=== PATIENT | female | born 1950 | race Caucasian/White ===

== ENCOUNTER 2023-04-19 23:28 | Inpatient (IN) | payer MEDICARE, OTHER ==
[~2023-04-19] VITALS: Ht 167.6 cm; Wt 88.5 kg
[2023-04-19] MEDS ORDERED: MORPHINE 2 MG/ML 1ML VIAL IV ONE (23:50)
[2023-04-20] VITALS (8 sets, daily range): BP systolic 152–187; BP diastolic 70–85; TEMP 97.6–98.1; O2SAT 96–99
[2023-04-20 00:03] LABS: BASO # 0.1 10^3/uL (0.0-0.2); BASO % 0.6 % (0.0-1.0); EOS # 0.2 10^3/uL (0.0-0.5); EOS % 1.6 % (0.0-3.0); HEMATOCRIT 39.1 % (36.0-47.0); HEMOGLOBIN 13.1 g/dl (12.0-15.5); LYMPH # 1.4 10^3/uL (1.5-5.0); LYMPH % 10.8 % (24.0-44.0); MEAN CORPUSCULAR HEMOGLOBIN 30.6 pg (27.0-33.0); MEAN CORPUSCULAR HGB CONC 33.5 g/dl (32.0-36.5); MEAN CORPUSCULAR VOLUME 91.4 fl (80.0-96.0); MONO # 0.9 10^3/uL (0.0-0.8); MONO % 7.2 % (2.0-8.0); NEUTROPHILS # 10.1 10^3/uL (1.5-8.5); NEUTROPHILS % 79.3 % (36.0-66.0); PLATELET COUNT, AUTOMATED 283 10^3/uL (150-450); RED BLOOD COUNT 4.28 10^6/uL (4.00-5.40); WHITE BLOOD COUNT 12.7 10^3/uL (4.0-10.0)
[2023-04-20 00:27] LABS: LIPASE 27 U/L (12-53)
[2023-04-20 00:30] LABS: ALKALINE PHOSPHATASE 101 U/L (46-116); ALT/SGPT < 9 U/L (7.0-40); AST/SGOT < 8 U/L (<34); BILIRUBIN,DIRECT 0.1 MG/DL (<0.4); BILIRUBIN,TOTAL 0.4 MG/DL (0.3-1.2); BLOOD UREA NITROGEN 29 MG/DL (9-23); CALCIUM LEVEL 9.7 MG/DL (8.3-10.6); CARBON DIOXIDE LEVEL 26 MMOL/L (20-31); CHLORIDE LEVEL 107 MMOL/L (98-107); CREATININE FOR GFR 0.96 MG/DL (0.55-1.30); GLOMERULAR FILTRATION RATE > 60.0 (>39); GLUCOSE, FASTING 131 MG/DL (74-106); POTASSIUM SERUM 4.4 MMOL/L (3.5-5.1); SODIUM LEVEL 139 MMOL/L (136-145); TOTAL PROTEIN 6.2 G/DL (5.7-8.2)
[2023-04-20] MEDS ORDERED: MED REC IN PROGRESS XX SCH (00:40)
[2023-04-20] MEDS ORDERED: HYDROMORPHONE HCL 0.5 MG/ 0.5 ML SYRINGE IV PRN (00:45)
[2023-04-20 01:12] LABS: RSV AMPLIFICATION NEGATIVE (NEGATIVE)
[2023-04-20] MEDS ORDERED: MORPHINE 2 MG/ML 1ML VIAL IV PRN (01:55)
[2023-04-20] MEDS ORDERED: BISACODYL 5MG TAB PO PRN (01:55)
[2023-04-20] MEDS ORDERED: ACETAMINOPHEN TAB 650MG DOSE (2X325MG) PO PRN (01:55)
[2023-04-20] MEDS ORDERED: LR 1,000 ML IV SCH ×2 (01:55→17:40)
[2023-04-20] MEDS ORDERED: LIDOCAINE 5% (LIDODERM) PATCH TD PRN (01:55)
[2023-04-20] MEDS ORDERED: ONDANSETRON 4MG 2ML VIAL IV PRN ×2 (01:55→17:40)
[2023-04-20] MEDS ORDERED: hydrALAZINE 20MG/ML 1ML VIAL IV PRN ×2 (01:55→12:05)
[2023-04-20] MEDS ORDERED: B-12100011 SL (02:04)
[2023-04-20] MEDS ORDERED: MELO15TA28 PO (02:04)
[2023-04-20] MEDS ORDERED: HYDR-4571 PO (02:04)
[2023-04-20] MEDS ORDERED: CYCL10TA20 PO (02:04)
[2023-04-20] MEDS ORDERED: FURO20TA2 PO (02:04)
[2023-04-20] MEDS ORDERED: VITA100093 PO (02:04)
[2023-04-20] MEDS ORDERED: OMEP-173 PO (02:04)
[2023-04-20] MEDS ORDERED: OCUVTAB4 PO (02:04)
[2023-04-20] MEDS ORDERED: AMLO1TAB25 PO (02:04)
[2023-04-20] MEDS ORDERED: HOME MED LIST COMPLETE! XX SCH (02:05)
[2023-04-20] MEDS: CYCLOBENZAPRINE 10MG TABLET PO PRN ×2 (04:10→20:02)
[2023-04-20] MEDS: NORCO, ANEXSIA 5/325MG TABLET (HYDROcodone/ACETAMINOPHEN) PO PRN ×2 (04:10→18:49)
[2023-04-20 06:52] LABS: BASO # 0.1 10^3/uL (0.0-0.2); BASO % 0.7 % (0.0-1.0); EOS # 0.2 10^3/uL (0.0-0.5); EOS % 2.2 % (0.0-3.0); HEMATOCRIT 36.3 % (36.0-47.0); HEMOGLOBIN 12.1 g/dl (12.0-15.5); LYMPH # 1.8 10^3/uL (1.5-5.0); LYMPH % 22.2 % (24.0-44.0); MEAN CORPUSCULAR HEMOGLOBIN 30.5 pg (27.0-33.0); MEAN CORPUSCULAR HGB CONC 33.3 g/dl (32.0-36.5); MEAN CORPUSCULAR VOLUME 91.4 fl (80.0-96.0); MONO # 0.8 10^3/uL (0.0-0.8); MONO % 9.8 % (2.0-8.0); NEUTROPHILS # 5.4 10^3/uL (1.5-8.5); NEUTROPHILS % 64.6 % (36.0-66.0); PLATELET COUNT, AUTOMATED 253 10^3/uL (150-450); RED BLOOD COUNT 3.97 10^6/uL (4.00-5.40); WHITE BLOOD COUNT 8.3 10^3/uL (4.0-10.0)
[2023-04-20 07:01] LABS: INR 1.08; PROTHROMBIN TIME 14.2 SECONDS (12.5-14.5)
[2023-04-20 07:02] LABS: PARTIAL THROMBOPLASTIN TIME 28.2 SECONDS (24.8-34.2)
[2023-04-20 07:18] LABS: BLOOD UREA NITROGEN 28 MG/DL (9-23); CALCIUM LEVEL 8.8 MG/DL (8.3-10.6); CARBON DIOXIDE LEVEL 26 MMOL/L (20-31); CHLORIDE LEVEL 108 MMOL/L (98-107); CREATININE FOR GFR 0.79 MG/DL (0.55-1.30); GLOMERULAR FILTRATION RATE > 60.0 (>39); GLUCOSE, FASTING 98 MG/DL (74-106); POTASSIUM SERUM 4.2 MMOL/L (3.5-5.1); SODIUM LEVEL 141 MMOL/L (136-145)
[2023-04-20 07:24] LABS: HEMOGLOBIN A1c 5.4 % (4.0-6.0)
[2023-04-20] MEDS: OMEPRAZOLE 20MG CAP PO SCH (09:11)
[2023-04-20] MEDS: DOCUSATE SODIUM 100MG CAPSULE PO SCH ×2 (09:11→20:02)
[2023-04-20] MEDS: VITAMIN D 1,000 INTERNATIONAL UNITS TABLET PO SCH (09:12)
[2023-04-20] MEDS ORDERED: MIDAZOLAM INJ 2MG/2ML VIAL As Ordered ONE (12:07)
[2023-04-20] MEDS ORDERED: ONDANSETRON 4MG 2ML VIAL As Ordered ONE (12:07)
[2023-04-20] MEDS ORDERED: propofoL 200 MG/20 ML VIAL As Ordered ONE (12:07)
[2023-04-20] MEDS ORDERED: fentaNYL 100 MCG/2 ML INJECTION As Ordered ONE ×3 (12:07→17:42)
[2023-04-20] MEDS ORDERED: LIDOCAINE 2% 100MG/5ML SDV (FOR ANES.) As Ordered ONE (12:07)
[2023-04-20] MEDS ORDERED: ACETAMINOPHEN 1000MG 100ML IV BAG As Ordered ONE (12:10)
[2023-04-20] MEDS ORDERED: ceFAZolin 2 GM/D5W 50 ML IV BAG As Ordered ONE (15:08)
[2023-04-20] MEDS ORDERED: ePHEDrine SULFATE 25 MG/5 ML(5MG/ML) SYRINGE As Ordered ONE (16:21)
[2023-04-20] MEDS ORDERED: oxyCODONE 5MG TAB PO PRN (17:40)
[2023-04-20] MEDS ORDERED: METOCLOPRAMIDE INJ 10MG/2ML VIAL IV PRN (17:40)
[2023-04-20] MEDS: fentaNYL 100 MCG/2 ML INJECTION IV PRN ×4 (17:45→18:12)
[2023-04-20] MEDS ORDERED: KETOROLAC 30 MG/ML 1ML VIAL IV ONE (18:00)
[2023-04-20] MEDS: HYDROMORPHONE HCL 0.5 MG/ 0.5 ML SYRINGE IV PRN ×2 (18:16→18:21)
[2023-04-21 00:42] VITALS: BP 151/71; TEMP 98.7; O2SAT 97
[2023-04-21] MEDS: CYCLOBENZAPRINE 10MG TABLET PO PRN (02:07)
[2023-04-21] MEDS: NORCO, ANEXSIA 5/325MG TABLET (HYDROcodone/ACETAMINOPHEN) PO PRN ×2 (02:08→08:39)
[2023-04-21 04:25] VITALS: BP 143/68; TEMP 97.4; O2SAT 98
[2023-04-21 05:28] LABS: BASO % 0.4 % (0.0-1.0); HEMATOCRIT 36.7 % (36.0-47.0); HEMOGLOBIN 11.8 g/dl (12.0-15.5); LYMPH # 1.1 10^3/uL (1.5-5.0); LYMPH % 11.7 % (24.0-44.0); MEAN CORPUSCULAR HEMOGLOBIN 29.9 pg (27.0-33.0); MEAN CORPUSCULAR HGB CONC 32.2 g/dl (32.0-36.5); MEAN CORPUSCULAR VOLUME 93.1 fl (80.0-96.0); MONO % 10.9 % (2.0-8.0); NEUTROPHILS # 7.3 10^3/uL (1.5-8.5); NEUTROPHILS % 76.6 % (36.0-66.0); PLATELET COUNT, AUTOMATED 253 10^3/uL (150-450); RED BLOOD COUNT 3.94 10^6/uL (4.00-5.40); WHITE BLOOD COUNT 9.5 10^3/uL (4.0-10.0)
[2023-04-21 05:53] LABS: BLOOD UREA NITROGEN 20 MG/DL (9-23); CARBON DIOXIDE LEVEL 26 MMOL/L (20-31); CHLORIDE LEVEL 109 MMOL/L (98-107); CREATININE FOR GFR 0.75 MG/DL (0.55-1.30); GLOMERULAR FILTRATION RATE > 60.0 (>39); GLUCOSE, FASTING 111 MG/DL (74-106); POTASSIUM SERUM 4.8 MMOL/L (3.5-5.1); SODIUM LEVEL 140 MMOL/L (136-145)
[2023-04-21 08:00] VITALS: BP 141/65; TEMP 98.4; O2SAT 93
[2023-04-21] MEDS ORDERED: MAALOX 30 ML SUSP *UDC PO ONE (08:20)
[2023-04-21] MEDS ORDERED: CALCIUM CARBONATE 500 MG CHEW U/D PO PRN (08:20)
[2023-04-21 08:38] VITALS: BP 141/65
[2023-04-21] MEDS: VITAMIN D 1,000 INTERNATIONAL UNITS TABLET PO SCH (08:38)
[2023-04-21] MEDS: DOCUSATE SODIUM 100MG CAPSULE PO SCH (08:39)
[2023-04-21] MEDS: OMEPRAZOLE 20MG CAP PO SCH (08:39)
[2023-04-21 12:33] VITALS: BP 149/70; TEMP 98.5; O2SAT 91
== END 2023-04-21 16:48 | disposition home or self-care (01) | DRG 511 ==
LOC: M ED 23:28 → M ED INP 04-20 01:53 → M PCU 04-20 03:38
PROVIDERS: ADMIT Internal Medicine; ATTEND Internal Medicine
PROC: 0PSB04Z Reposition Left Clavicle with Internal Fixation Device, Open Approach (ICD-10-PCS; 2023-04-20)
PROC: 0PSJ04Z Reposition Left Radius with Internal Fixation Device, Open Approach (ICD-10-PCS; principal; 2023-04-20 12:00)
DX: S52.551A Other extraarticular fracture of lower end of right radius, initial encounter for closed fracture (principal); S52.552A Other extraarticular fracture of lower end of left radius, initial encounter for closed fracture; I10 Essential (primary) hypertension; Z79.899 Other long term (current) drug therapy; Z88.2 Allergy status to sulfonamides; Z88.8 Allergy status to other drugs, medicaments and biological substances; I16.0 Hypertensive urgency; D72.829 Elevated white blood cell count, unspecified; W18.30XA Fall on same level, unspecified, initial encounter; Y92.009 Unspecified place in unspecified non-institutional (private) residence as the place of occurrence of the external cause